=== PATIENT | female | born 1990 | race Caucasian/White ===

== ENCOUNTER 2018-10-26 07:00 | Inpatient (IN) | payer BC ==
[~2018-10-26] VITALS: Ht 170.2 cm; Wt 81.6 kg
[2018-10-26] VITALS (14 sets, daily range): BP systolic 98–131; BP diastolic 58–92
[~2018-10-26 07:00] MED LIST: CALC-515 PO; CALC-852 PO; PNV1COMB5
[2018-10-26] MEDS ORDERED: NORMOSOL R SOLN(*) 1000 ML BAG 1,000 ML IV ONE (07:11)
[2018-10-26] MEDS ORDERED: LR(*) 1000 ML BAG 1,000 ML IV SCH (07:38)
[2018-10-26] MEDS ORDERED: FAMOTIDINE 20 MG/50 ML PREMIX IVPB ONE (07:40)
[2018-10-26] MEDS ORDERED: cefOXitin/DEX(*) 2GM/50ML PREM 50 ML IVPB ONE (08:00)
[2018-10-26 08:05] LABS: PLATELET COUNT, AUTOMATED 182 K/uL (150-450)
[2018-10-26] MEDS ORDERED: OXYTOCIN 10 UNIT/ML SDV ONE ×2 (09:34→10:23)
[2018-10-26] MEDS ORDERED: MORPHINE PF 5 MG/10 ML AMP ONE (09:34)
[2018-10-26] MEDS ORDERED: fentaNYL CITR 100 MCG/2 ML AMP ONE (09:35)
--- NOTE | 2018-10-26 09:51 | History & Physical ---
History of Present Illness Age of Patient: 27 : 1 Para or TPAL: 0 Estimated Gestational Age: 39.0 Chief Complaint History of Present Illness Presents for c/s for breech presentation. care has been uncomplicated. Past Medical, Surgical, Family and Obstetric Histories reviewed. Please see ACOG chart. Med Rec Home Meds Reported Medications Calcium Carbonate/Vitamin D3 (CALCIUM + VITAMIN D TABLET) 1 Each Tablet, 1 EACH PO 10/21/18 Calcium Carbonate (TUMS) 200 Mg Tab.chew, 200 MG PO, TAB.CHEW 10/21/18 Pnv #116/Iron Fumarate/Fa/Dha (EXPECTA COMBO PACK) 1 Each Combo..pkg 10/21/18 Review of Systems All Systems Reviewed/Normal: Yes, Except as Noted Exam General Exam General Apperance: Alert/Awake/No Acute Distress Neuro: No Gross deficits Cardiovascular: Regular Rate and Rhythm Respiratory: No Respiratory Distress Musculoskeletal: No Weakness/Pain Extremities: No Cyanosis,Clubbing or Edema Integumentary: Skin Intact without Lesions or Rash Psychological: Alert & Oriented X3 Fetus FHT Category: I Medical Decision Making Data Points Result Diagram: 10/26/18 0752 VTE Prophylasis: Adult Deep Vein Thrombosis/Pulmonary: No Pharmacological Contraindicati: Pt at Low Risk for VTE Mechanical Contraindications: Pt at Low Risk for VTE Assessment and Plan Problems: (1) Breech presentation Assessment & Plan: Verify presentation. C/S if still breech. Problem Qualifiers (1) Breech presentation: Fetus number: single or unspecified fetus Qualified Codes: O32.1XX0 - Maternal care for breech presentation, not applicable or unspecified TRUDY TOLENTINO MD Oct 26, 2018 09:51
[2018-10-26] MEDS ORDERED: OXYTOCIN 30 UNIT/NS 500 ML 500 ML IV PRN (11:29)
[2018-10-26] MEDS ORDERED: SIMETHICONE 80 MG CHEW CHEW PRN (11:30)
[2018-10-26] MEDS ORDERED: PROMETHAZINE 25 MG/ML 1 ML AMP IVP PRN (11:30)
[2018-10-26] MEDS ORDERED: LANOLIN OINT 7 GM TUBE TP PRN (11:30)
[2018-10-26] MEDS ORDERED: ZOLPIDEM TARTRATE 5 MG TAB PO PRN (11:30)
[2018-10-26] MEDS ORDERED: ONDANSETRON 4 MG/2 ML VIAL IV PRN (11:30)
[2018-10-26] MEDS ORDERED: ACETAMINOPHEN 325 MG TAB PO PRN (11:30)
[2018-10-26] MEDS ORDERED: IBUP800T37 PO (11:35)
[2018-10-26] MEDS ORDERED: DOCU240C67 PO (11:35)
[2018-10-26] MEDS ORDERED: OXYC-865 PO (11:35)
[2018-10-26] MEDS: KETOROLAC 30 MG/ML VIAL IVP SCH ×2 (12:00→18:13)
--- NOTE | 2018-10-26 12:30 | Post Operative Note ---
Operative Note - [employer] Operative Day Date: Oct 26, 2018 Time: 12:23 Physicians Surgeon: Kavin Rn Med Surg: Anne Henning Anesthesia: spinal Diagnosis Pre-Op Diagnosis: Breech Post-Op Diagnosis: same Procedure Findings: Breech Procedure(s): Primary LTCS Specimen Removed:(Maybe N/A): placenta Complications: none [id number] Fluids Fluids: 1800 ml Estimated Blood Loss: 700 ml Dictated Date OP Note Dictated: Oct 26, 2018 Time OP Note Dictated: 12:24 Copies to: TRUDY TOLENTINO MD ; TRUDY TOLENTINO MD Oct 26, 2018 12:30
--- NOTE | 2018-10-26 12:33 | Anesthesia OB Pre-Anes Eval ---
History of Present Illness Anesthesia Start Date: Oct 26, 2018 Anesthesia Start Time: 09:51 OB Anesthesia Diagnosis: primary c/section (for breech presentation and large baby.) Current Complication: other (breech presentation) Complications: none known : 1 Para: 0 Vital Signs: Vital Signs Date Time Temp Pulse Resp B/P (MAP) Pulse Ox O2 Delivery O2 Flow Rate FiO2 10/26/18 12:15 96.5 63 16 120/86 (97) 94 Room Air Pain Ratin Heart Tones: 133 Result Diagram: 10/26/18 0752 Height (Inches): 67 Weight (Pounds): 180 BMI (kg/m2): 28 GBS neg. Past Medical History Medical History: no pertinent history Surgical History: other (wisdom teeth) Previous Anesthesia: general Attended Childbirth Classes?: No Hx Anesthesia Reactions: No Hx Family Anesthesia Reaction: No Home Meds Active Scripts Oxycodone Hcl/Acetaminophen (PERCOCET 5-325 MG TABLET) 1 Each Tablet, 1 EACH PO Q4-6H PRN for PAIN, #20 TAB 0 Refills TAKE 1 TABLET NEEDED FOR PAIN - NO CLOSER THAN EVERY 4-6 HOURS. Prov:FRANCIA HEREDIA 10/26/18 Reported Medications Calcium Carbonate/Vitamin D3 (CALCIUM + VITAMIN D TABLET) 1 Each Tablet, 1 EACH PO 10/21/18 Calcium Carbonate (TUMS) 200 Mg Tab.chew, 200 MG PO, TAB.CHEW 10/21/18 Pnv #116/Iron Fumarate/Fa/Dha (EXPECTA COMBO PACK) 1 Each Combo..pkg 10/21/18 Allergies: Coded Allergies: No Known Drug Allergies (Unverified , 10/26/18) Anesthesia OB ROS Neurological: No migraines/headaches, No seizures, No neuropathy, No other Eyes ROS: contacts in (Pt and , accept increased risk of wearing contacts, to facilitate first glimpse of .) ENT: Denies Tooth caps, Denies Loose teeth, Denies Chipped teeth, Denies Dentures, Denies Bridges, Denies Retainers, Denies Veneers, Denies Implants, Denies Tongue ring, Denies Other Pulmonary: No asthma, No smoker (pks/day/yrs), No other Airway Class: ll GI ROS: NPO Last Solids Date: Oct 26, 2018 Last Solids Time: 20:00 ROS: No Herpes, No STD(s), No Liver Disease, No Renal Disease, No Other Endocrine ROS: No diabetes, No gestational diabetes, No thyroid disorder, No other ASA Classification: 2 CHENTE OH CRNA Oct 26, 2018 12:33
[2018-10-26] MEDS ORDERED: LIDO/EPI 2% MPF 1:200,000 20ML EPI PRN (12:35)
[2018-10-26] MEDS ORDERED: NALBUPHINE HCL 10 MG/ML AMP IVP PRN (12:35)
[2018-10-26] MEDS ORDERED: NALOXONE HCL 0.4 MG/ML VIAL IV PRN (12:35)
[2018-10-26] MEDS ORDERED: diphenhydrAMINE 50 MG/ML VIAL IV PRN (12:35)
[2018-10-26] MEDS ORDERED: fentaNYL CITR 100 MCG/2 ML AMP IT PRN (12:35)
--- NOTE | 2018-10-26 14:21 | OPERATIVE REPORT 1 ---
EVENT DATE: October 26, 2018 SURGEON: Dell Vale MD ANESTHESIOLOGIST: Gifty Kuhn CRNA ANESTHESIA: Spinal. FILLER SIFTER HELPER: SUJATA Ndiaye PREOPERATIVE DIAGNOSES 1. Breech presentation. 2. 39-week intrauterine . POSTOPERATIVE DIAGNOSES 1. Breech presentation. 2. 39-week intrauterine . PROCEDURE PERFORMED Primary low transverse section via Pfannenstiel skin incision. ESTIMATED BLOOD LOSS 700 cc. FLUIDS 100 cc IV crystalloid. FINDINGS Keith breech presentation, right sacrum anterior presentation. Normal appearing uterus, tubes and ovaries. DESCRIPTION OF PROCEDURE The patient was brought to the operating room and spinal anesthetic was administered. She was placed in the dorsal supine position with a leftward tilt and prepped and draped in the usual sterile fashion. Using a knife, a Pfannenstiel skin incision was made and carried through to the underlying rectus fascia. This was nicked in the midline and extended laterally. The rectus fascia was dissected off using sharp and blunt dissection superiorly and inferiorly and then in the midline. The peritoneum was entered sharpy. This incision was extended superiorly and inferiorly, taking care to avoid injury to the underlying bladder. A bladder blade was inserted. The vesicouterine peritoneum was entered sharpy and extended laterally. Bladder flap was created digitally. This exposed the lower uterine segment, which received a low transverse incision with the scalpel and carried through to the intra-amniotic space. There was clear fluid upon amniotomy. The incision was extended using blunt lateral traction. A hand was inserted. The infant was found in the right sacrum anterior position. The sacrum and bottom were brought to the incision and fundal pressure was applied, delivering the breech up to a level of the knees. Both of the knees were then flexed at the knee and hip in order to be delivered. The baby was rotated sacrum anterior and delivered up to the level of the shoulder and the scapula. Each arm was individually delivered by sweeping the arm across the chest, flexing at the elbow and rotating at the shoulder. The baby's head was maintained in a flexed position by applying pressure to the omentum while fundal pressure was applied and the infant's head delivered atraumatically. Mouth and nose were bulb suctioned. Cord was clamped and cut and the was passed to the awaiting resuscitation team. Cord samples obtained. The placenta was delivered manually. Uterus was exteriorized and cleared of clots and debris. Monterroso clamps were placed for hemostasis while the repair was performed with #1 Monocryl in a running locking stitch. A second stitch of the same type was used to imbricate the first layer, completing a two layer closure. This was hemostatic upon completion. The posterior cul-de-sac was then irrigated, suctioned clear of clots and debris. The uterus was returned to the abdomen and the bilateral pelvic gutters were irrigated and suctioned clear of clots and debris. The parietal peritoneum was then repaired using the 3-0 Vicryl in a running nonlocking stitch. The rectus muscles were reapproximated in the midline with the same stitch. The muscle bellies were inspected. A light amount of cautery was applied. The rectus fascia was repaired using an 0 Vicryl in a running nonlocking stitch. Subcuticular space was then irrigated, suctioned clear of clots and debris. A few capillary bleeders were cauterized. The space was closed with 3-0 Vicryl Plus in a running nonlocking stitch, closing the space. Skin was repaired with a 4-0 Monocryl simple subdermal and covered with Dermabond skin adhesive. She tolerated the procedure well. Sponge, laps, needle and instrument counts were all correct x3. She was taken to recovery in stable condition. SARAH
[2018-10-26] MEDS: DLR(*) 1000 ML BAG 1,000 ML IV PRN (18:00)
[2018-10-26] MEDS: FAMOTIDINE 20 MG TAB PO SCH (21:13)
[2018-10-26] MEDS: DOCUSATE CALCIUM 240 MG CAP PO SCH (21:13)
[2018-10-27] MEDS: KETOROLAC 30 MG/ML VIAL IVP SCH (00:44)
[2018-10-27] MEDS: DLR(*) 1000 ML BAG 1,000 ML IV PRN (00:49)
[2018-10-27 03:20] VITALS: BP 109/72
[2018-10-27] MEDS: IBUPROFEN 800 MG TAB PO SCH ×3 (05:26→21:41)
[2018-10-27 06:28] LABS: PLATELET COUNT, AUTOMATED 153 K/uL (150-450)
[2018-10-27 07:24] VITALS: BP 113/79
[2018-10-27 07:57] VITALS: Ht 170.2 cm; Wt 81.6 kg
--- NOTE | 2018-10-27 08:04 | OB/GYN Progress Note ---
OB Subjective Progress Notes Subjective Feeling well. Pain well controlled and ambulating well last night. IV saline locked. GI: NEG Nausea : Voiding Well Pain: Mild OB Objective Physical Exam Vital Signs Date Time Temp Pulse Resp B/P (MAP) Pulse Ox O2 Delivery O2 Flow Rate FiO2 10/27/18 03:20 97.8 68 14 109/72 (84) 97 Room Air 10/26/18 19:48 Intake and Output 10/27/18 07:03 Intake Total 2877 ml Output Total 2375 ml Balance 502 ml Intake Oral 1260 ml IV Total 1617 ml Output Urine Total 2375 ml General Appearance: Alert/Awake/No Acute Distress Neurological: No Gross deficits Cardiovascular: Normal Rhythm & Peripheral Pulses, Regular Rate and Rhythm Respiratory: No Respiratory Distress, Clear to Auscultation Abdomen: Soft, Non-Tender, Non-Distended Incision: Clean, Dry, Intact, Dermabond Extremities: No Cyanosis,Clubbing or Edema Integumentary: Skin Intact without Lesions or Rash Psychological: Alert & Oriented X3, Appropriate Mood & Affect Result Diagram: 10/27/18 0546 Assessment and Plan COMPENSATION COORDINATOR Plan: Routine Post- Care, Routine Post-Op Care Problems: (1) Breech presentation (2) Other specified aftercare following surgery Assessment & Plan: Key out today and ambulate. (3) care and examination immediately after delivery Problem Qualifiers (1) Breech presentation: Fetus number: single or unspecified fetus Qualified Codes: O32.1XX0 - Maternal care for breech presentation, not applicable or unspecified TRUDY TOLENTINO MD Oct 27, 2018 08:04
[2018-10-27] MEDS ORDERED: DIPHTH/TETANUS/ACEL. PERTUSSIS IM ONLY ONE (09:00)
[2018-10-27] MEDS ORDERED: INFLUENZA VIRUS VAC 0.5ML SYR IM ONLY ONE (09:00)
[2018-10-27] MEDS ORDERED: MEASLES,MUMP,RUBELLA VAC 0.5ML SUBQ ONE (09:00)
[2018-10-27] MEDS: DOCUSATE CALCIUM 240 MG CAP PO SCH ×2 (09:25→20:21)
[2018-10-27] MEDS: FAMOTIDINE 20 MG TAB PO SCH ×2 (09:25→20:21)
[2018-10-27 11:02] VITALS: BP 116/73
[2018-10-27 16:10] VITALS: BP 114/73
[2018-10-27 19:20] VITALS: BP 127/84
[2018-10-27] MEDS: oxyCODON/ACET (*)5/325MG (CII) 1 TAB TAB PO PRN (20:22)
[2018-10-27 23:20] VITALS: BP 116/86
[2018-10-28 03:30] VITALS: BP 129/82
[2018-10-28] MEDS: oxyCODON/ACET (*)5/325MG (CII) 1 TAB TAB PO PRN ×2 (03:58→11:55)
[2018-10-28] MEDS: IBUPROFEN 800 MG TAB PO SCH ×2 (05:30→14:58)
[2018-10-28 07:30] VITALS: BP 129/89
--- NOTE | 2018-10-28 08:17 | OB/GYN Progress Note ---
OB Subjective Progress Notes Subjective Doing well. Pain controlled and ambulating well. Voiding well and tolerating regular diet. Ready to go home. GI: NEG Nausea : Voiding Well Pain: Mild OB Objective Physical Exam Vital Signs Date Time Temp Pulse Resp B/P (MAP) Pulse Ox O2 Delivery O2 Flow Rate FiO2 10/28/18 03:30 97.4 118 14 129/82 (98) Room Air 10/27/18 11:02 94 10/26/18 19:48 Intake and Output 10/28/18 07:03 Intake Total 1690 ml Output Total 2550 ml Balance -860 ml Intake Oral 1690 ml Output Urine Total 2550 ml # Voids 2 General Appearance: Alert/Awake/No Acute Distress Neurological: No Gross deficits Cardiovascular: Normal Rhythm & Peripheral Pulses, Regular Rate and Rhythm Respiratory: No Respiratory Distress, Clear to Auscultation Abdomen: Soft, Non-Tender, Non-Distended Incision: Clean, Dry, Intact, Dermabond Extremities: No Cyanosis,Clubbing or Edema Integumentary: Skin Intact without Lesions or Rash Psychological: Alert & Oriented X3, Appropriate Mood & Affect Result Diagram: 10/27/18 0546 Assessment and Plan Problems: (1) Breech presentation Status: Resolved Assessment & Plan: s/p Primary LTCS (2) Other specified aftercare following surgery Assessment & Plan: Reviewed discharge instruction and precautions. F/U in office in 2 weeks. Call if problems. (3) care and examination immediately after delivery Problem Qualifiers (1) Breech presentation: Fetus number: single or unspecified fetus Qualified Codes: O32.1XX0 - Maternal care for breech presentation, not applicable or unspecified TRUDY TOLENTINO MD Oct 28, 2018 08:17
--- NOTE | 2018-10-28 08:18 | OB/GYN Discharge Summary ---
Discharge Summary Reason for Hosp/Final Diag: (1) Breech presentation Status: Resolved Hospital Course & Plan: s/p Primary LTCS (2) Other specified aftercare following surgery Hospital Course & Plan: Reviewed discharge instruction and precautions. F/U in office in 2 weeks. Call if problems. (3) care and examination immediately after delivery L[place] Vital Signs Vital Signs Date Time Temp Pulse Resp B/P (MAP) Pulse Ox O2 Delivery O2 Flow Rate FiO2 10/28/18 03:30 97.4 118 14 129/82 (98) Room Air 10/27/18 11:02 94 10/26/18 19:48 Weight (Pounds): 180 Result Diagram: 10/27/18 0546 Condition: Improved Discharge: Home, Self Detention Meds Active Scripts Oxycodone Hcl/Acetaminophen (PERCOCET 5-325 MG TABLET) 1 Each Tablet, 1 EACH PO Q4-6H PRN for PAIN, #20 TAB 0 Refills TAKE 1 TABLET NEEDED FOR PAIN - NO CLOSER THAN EVERY 4-6 HOURS. Prov:FRANCIA HEREDIA 10/26/18 Reported Medications Calcium Carbonate/Vitamin D3 (CALCIUM + VITAMIN D TABLET) 1 Each Tablet, 1 EACH PO 10/21/18 Calcium Carbonate (TUMS) 200 Mg Tab.chew, 200 MG PO, TAB.CHEW 10/21/18 Pnv #116/Iron Fumarate/Fa/Dha (EXPECTA COMBO PACK) 1 Each Combo..pkg 10/21/18 Follow up Referrals: VOUCHER EXAMINER - In Two Weeks @ [facility] with TRUDY VALE MD Follow up with: Dr. Vale [phone] Follow up in: 6 wks PP or PO, 2 wks PO Discharge Diet: As Tolerates Discharge Activity: As Tolerates, No Heavy Lifting x 6 wks, No Heavy Lifting > 10lb, Pelvic Rest Copies to: TRUDY VALE MD ; Problem Qualifiers (1) Breech presentation: Fetus number: single or unspecified fetus Qualified Codes: O32.1XX0 - Maternal care for breech presentation, not applicable or unspecified TRUDY VALE MD Oct 28, 2018 08:18
[2018-10-28] MEDS ORDERED: OXYC-865 PO (08:21)
[2018-10-28] MEDS: FAMOTIDINE 20 MG TAB PO SCH (09:33)
[2018-10-28] MEDS: DOCUSATE CALCIUM 240 MG CAP PO SCH (09:33)
[2018-10-28 11:30] VITALS: BP 107/69
== END 2018-10-28 16:10 | disposition home or self-care (01) | DRG 788 ==
LOC: OB 07:00 → PED 12:54
PROVIDERS: ADMIT Obstetrics & Gynecology; ATTEND Obstetrics & Gynecology
PROC: 10D00Z1 Extraction of Products of Conception, Low, Open Approach (ICD-10-PCS; principal; 2018-10-26 09:51)
DX: O32.1XX0 Maternal care for breech presentation, not applicable or unspecified (principal); Z3A.39 39 weeks gestation of pregnancy; Z37.0 Single live birth
CPT/HCPCS: 36415; 85014; 85018; 85025; 86850; 86900; 86901; J0694; J1885; J2270; J2590; J3010; J7120